=== PATIENT | female | born 1980 | race Caucasian/White ===

== ENCOUNTER 2017-04-13 20:10 | Emergency (ER) | payer SELFPAY ==
[~2017-04-13] VITALS: Ht 170.2 cm; Wt 90.7 kg
[~2017-04-13 20:10] MED LIST: ACET-704 PO; ACYC800T PO; NAPR500T PO
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
--- NOTE | 2017-04-13 21:52 | RAD ---
CT head without intravenous contrast History: Injury, pain. Comparison: None. Technique: Axial images are obtained of the head from the skull base through the vertex without IV contrast. Exposure: One or more of the following individualized dose reduction techniques were utilized for this examination: 1. Automated exposure control 2. Adjustment of the mA and/or kV according to patient size 3. Use of iterative reconstruction technique Findings: The ventricles are appropriate in size, shape, and location for the patient's age. No obvious intracranial mass, mass-effect, midline shift, hemorrhage or obvious acute infarction is identified. Basilar cisterns are patent. Bone windows demonstrate no acute calvarial abnormality. Impression: 1. No acute intracranial process. CT face without contrast Technique: CT of the face was performed without intravenous contrast. Axial, sagittal, and coronal reconstructions were obtained. Exposure: One or more of the following individualized dose reduction techniques were utilized for this examination: 1. Automated exposure control 2. Adjustment of the mA and/or kV according to patient size 3. Use of iterative reconstruction technique Findings: No acute fracture is identified. Bilateral orbits and orbital contents appear intact. The visualized paranasal sinuses are clear with no significant mucosal thickening. Right periorbital soft tissue swelling is seen. Impression: 1. No acute facial fracture. 2. Right periorbital soft tissue swelling. Electronically signed by: Pedro Arevalo MD (04/13/2017 9:48 PM) [facility]
[2017-04-13 21:53] VITALS: BP 118/72
--- NOTE | 2017-04-13 21:57 | RAD ---
CT cervical spine History: Injury. Comparison: None. Technique: Noncontrast CT of the cervical spine was performed using helical technique. Axial, sagittal, coronal reconstructions were obtained. Exposure: One or more of the following individualized dose reduction techniques were utilized for this examination: 1. Automated exposure control 2. Adjustment of the mA and/or kV according to patient size 3. Use of iterative reconstruction technique Findings: There is no evidence of acute fracture or acute malalignment involving the cervical spine. No prevertebral soft tissue swelling is identified. Degenerative disc disease is seen at C5-6. Impression: No evidence of acute traumatic injury involving the cervical spine. Electronically signed by: Pedro Arevalo MD (04/13/2017 9:54 PM) [facility]
[2017-04-13] MEDS ORDERED: TRAM50TA PO (22:12)
[2017-04-13] MEDS ORDERED: HYDROcodone/APAP 5/325MG 1 TAB TABLET PO ONE (22:30)
== END 2017-04-13 22:54 | disposition home or self-care (01) ==
LOC: EEVIPCON 20:10 → ER 20:10
DX: S00.11XA Contusion of right eyelid and periocular area, initial encounter (principal); M54.2 Cervicalgia; Y04.0XXA Assault by unarmed brawl or fight, initial encounter; Y93.89 Activity, other specified; Y92.89 Other specified places as the place of occurrence of the external cause; Y99.8 Other external cause status
CPT/HCPCS: 70450; 70486; 72125; 99284-25